=== PATIENT | male | born 2000 | race African-American/Black ===

== ENCOUNTER 2024-05-13 10:34 | Emergency (ER) | payer SELFPAY ==
[~2024-05-13] VITALS: Ht 170.2 cm; Wt 68.0 kg
[2024-05-13 11:21] VITALS: BP 120/68; PULSE 65; RESP 18; TEMP 98.6; O2SAT 98
[2024-05-13] MEDS ORDERED: MOTRIN ONE (13:02)
[2024-05-13] MEDS: MOTRIN PO STA (13:06)
[2024-05-13 13:22] VITALS: BP 122/68; PULSE 66; RESP 18; TEMP 98.6; O2SAT 98
== END 2024-05-13 13:20 | disposition home or self-care (01) ==
LOC: ER 10:34
DX: L02.211 Cutaneous abscess of abdominal wall (principal)
CPT/HCPCS: 10060; 99283